=== PATIENT | male | born 1970 | race African-American/Black ===

== ENCOUNTER 2018-02-03 09:51 | Inpatient (IN) | payer OTHER ==
[2018-02-03 10:12] VITALS: BMI 28.5
--- NOTE | 2018-02-03 11:31 | HP ---
COWS - Scale Resting Pulse: 0= [place] 80 or Below Sweatin= Chills/Flushing Restless Observation: 1= Difficult to Sit Still Pupil Size: 1= Pupils >than Normal Bone or Joint Aches: 2= Severe Diffuse Aches Runny Nose/ Eye Tearin= Runny Nose/Eyes GI Upset > 30mins: 2= Nausea/Diarrhea Tremor Observation: 2= Slight Tremor Visible Yawning Observation: 1= 1-2x During Session Anxiety or Irritability: 2=Irritable/Anxious Goose Flesh Skin: 0=Smooth Skin COWS Score: 14 CIWA Score Nausea/Vomitin Muscle Tremors: 2 Anxiety: 2 Agitation: 2 Paroxysmal Sweats: 1-Minimal Palms Moist Orientation: 0-Oriented Tacttile Disturbances: 1-Very Mild Itch/Numbness Auditory Disturbances: 1-Very Mild Visual Disturbances: 0-None Headache: 2-Mild CIWA-Ar Total Score: 13 - Admission Criteria [facility] Guidelines: Admission for Medically Managed Detox: Requires at least one of the followin. CIWA greater than 12 2. Seizures within the past 24 hours 3. Delirium tremens within the past 24 hours 4. Hallucinations within the past 24 hours 5. Acute intervention needed for co occurring medical disorder 6. Acute intervention needed for co occurring psychiatric disorder 7. Severe withdrawal that cannot be handled at a lower level of care (continued vomiting, continued diarrhea, abnormal vital signs) requiring intravenous medication and/or fluids 8. Patient presents the following: CIWA greater than 12 Admission Criteria Met: Admission criteria met Admission ROS [facility] Chief Complaint: i need help to stop using heroin,alcohol and marijuana Allergies/Adverse Reactions: Allergies Allergy/AdvReac Type Severity Reaction Status Date / Time No Known Allergies Allergy Verified 02/03/18 11:09 History of Present Illness: this 47 years old male with heroin and marijuana dependence,withdrawal symptom, seeking detox,last treatment 08/13 [facility] history of hypertension multiple admissions in detox nicotine dependence longest period of sobriety 5 years also alcoholism Exam Limitations: No Limitations - Ebola screening Have you traveled outside of the country in the last 21 days: No Have you had contact with anyone from an Ebola affected area: No Have you been sick,other than usual withdrawal symptoms: No - Review of Systems Constitutional: Chills, Loss of Appetite, Malaise, Night Sweats, Changes in sleep, Weakness EENT: reports: Tearing, Nose Congestion Respiratory: reports: No Symptoms reported Cardiac: reports: No Symptoms Reported GI: reports: Nausea, Indigestion, Abdominal cramping : reports: No Symptoms Reported Musculoskeletal: reports: Back Pain, Joint Pain, Muscle Pain Integumentary: reports: Dryness Neuro: reports: Headache, Tremors Endocrine: reports: No Symptoms Reported Hematology: reports: No Symptoms Reported Psychiatric: reports: No Sypmtoms Reported, Judgement Intact, Mood/Affect Appropiate Patient History - Patient Medical History Hx Anemia: No Hx Asthma: No Hx Chronic Obstructive Pulmonary Disease (COPD): No Hx Cardiac Disorders: No Hx Hypertension: Yes (not on meds.) Hx Hypercholesterolemia: No Hx Pacemaker: No HX Cerebrovascular Accident: No Hx Seizures: No Hx Dementia: No Hx Diabetes: No Hx Gastrointestinal Disorders: No Hx Liver Disease: No Hx Genitourinary Disorders: No Hx Sexually Transmitted Disorders: No Hx Renal Disease (ESRD): No Hx Thyroid Disease: No Hx Human Immunodeficiency Virus (HIV): No (last 08/13 negative) Hx Hepatitis C: No Hx Depression: No Hx Suicide Attempt: No Hx Bipolar Disorder: No Hx Schizophrenia: No Other Medical History: no suicidal,no homicidal - Patient Surgical History Past Surgical History: No - PPD History Previous Implant?: Yes Documented Results: Negative w/o proof Implanted On Prior [facility] Admission?: No PPD to be Administered?: Yes - Smoking Cessation Smoking history: Current every day smoker Have you smoked in the past 12 months: Yes Aproximately how many cigarettes per day: 20 Hx Chewing Tobacco Use: No Initiated information on smoking cessation: Yes 'Breaking Loose' booklet given: 02/03/18 - Substance & Tx. History Hx Alcohol Use: Yes Hx Substance Use: Yes Substance Use Type: Alcohol, Heroin, Marijuana - Substances Abused Heroin Route: Inhalation Frequency: Daily Amount used: 10 BAGS Age of first use: 13 Date of Last Use: 02/03/18 Alcohol Route: Oral Frequency: Daily Amount used: 1/2 [place] Age of first use: 13 Date of Last Use: 02/03/18 Marijuana/Hashish Route: Smoking Frequency: Daily Amount used: 1-2 BLUNTS Age of first use: 13 Date of Last Use: 02/02/18 Family Disease History - Family Disease History Family Disease History: Other: Father (alcohol) Admission Physical Exam [facility] - Vital Signs Vital Signs: Vital Signs - 24 hr 02/03/18 10:09 Temperature 98.3 F Pulse Rate 61 Respiratory 18 Rate Blood Pressure 131/86 - Physical General Appearance: Yes: Moderate Distress, Tremorous, Irritable, Sweating, Anxious HEENTM: Yes: Normocephalic, APRYL, Pharynx Normal Respiratory: Yes: Lungs Clear, Normal Breath Sounds, No Respiratory Distress Neck: Yes: Within Normal Limits, Supple, Trachea in good position Breast: Yes: Within Normal Limits Cardiology: Yes: Within Normal Limits, Regular Rhythm, Regular Rate, S1, S2 Abdominal: Yes: Within Normal Limits, Normal Bowel Sounds, Non Tender, Flat, Soft Genitourinary: Yes: Within Normal Limits Back: Yes: Muscle Spasm Musculoskeletal: Yes: full range of Motion, Back pain, Joint Stiffness, Muscle Pain Extremities: Yes: Within Normal Limits, Tremors Neurological: Yes: tire center manager II-XII NML intact, Fully Oriented, Alert, Motor Strength 5/5 Integumentary: Yes: Dry Lymphatic: Yes: Within Normal Limits - Diagnostic (1) Opioid dependence with withdrawal Current Visit: Yes Status: Acute (2) Alcohol dependence with uncomplicated withdrawal Current Visit: Yes Status: Acute (3) Cannabis dependence Current Visit: Yes Status: Acute (4) Essential hypertension Current Visit: Yes Status: Acute (5) Nicotine dependence Current Visit: Yes Status: Acute Cleared for Admission [facility] - Detox or Rehab [facility] Level of Care: Medically Managed Detox Regimen/Protocol: Methadone/Librium [facility] Breath Alcohol Content Breath Alcohol Content: 0.20 Urine Drug Screen - Results Drug Screen Negative: No Urine Drug Screen Results: THC-Marijuana, OPI-Opiates, FEN-Fentanyl
[2018-02-03] MEDS ORDERED: MAGNESIUM HYDROX 2400MG/30ML ORAL SUSPENSION 30 ML CUP PO PRN (11:43)
[2018-02-03] MEDS ORDERED: P-EPHED 60MG/TRIPROLIDI 2.5MG TABLET PO PRN (11:43)
[2018-02-03] MEDS ORDERED: hydrOXYzine PAMOATE 25 MG CAPSULE (FP) PO PRN (11:43)
[2018-02-03] MEDS ORDERED: MAGNESIUM CITRATE 300 ML BOTTLE PO PRN (11:43)
[2018-02-03] MEDS ORDERED: MENTHOL/PHENOL 1 EACH UD MM PRN (11:43)
[2018-02-03] MEDS ORDERED: LOPERAMIDE HCL 2 MG CAPSULE PO PRN (11:43)
[2018-02-03] MEDS ORDERED: guaiFENesin/D-METHORPHAN HB 10 ML UNIT-DOSE CUPS PO PRN (11:43)
[2018-02-03] MEDS ORDERED: chlordiazePOXIDE HCL 25 MG CAPSULE PO PRN (11:43)
[2018-02-03] MEDS ORDERED: MAG HYDROX/AL HYDROX/SIMETH 30 ML UNIT-DOSE CUP PO PRN (11:43)
[2018-02-03] MEDS ORDERED: ACETAMINOPHEN 325 MG TABLET (FP) PO PRN (11:43)
[2018-02-03] MEDS ORDERED: METHADONE HCL 10 MG TABLET (FOR DETOX USE ONLY) PO ONE ×2 (12:15→23:00)
[2018-02-03] MEDS: chlordiazePOXIDE HCL 25 MG CAPSULE PO SCH ×2 (17:10→22:10)
[2018-02-03 18:31] LABS: URINE APPEARANCE CLEAR; URINE BILIRUBIN NEGATIVE (<2.0 mg/dL); URINE COLOR YELLOW; URINE GLUCOSE (UA) NEGATIVE (NEGATIVE); URINE KETONE NEGATIVE (NEGATIVE); URINE LEUK ESTERASE 1+ (NEGATIVE); URINE NITRITE NEGATIVE (NEGATIVE); URINE PROTEIN NEGATIVE (NEGATIVE); URINE UROBILINOGEN 4.0 E.U/dl mg/dL (0.2-1.0)
[2018-02-03 18:36] LABS: EPI CELLS RARE /HPF (FEW); URINE HYALINE CAST 1 /lpf; URINE MUCUS RARE
[2018-02-03] MEDS: IBUPROFEN 400 MG TABLET (FP) PO PRN (19:39)
[2018-02-03] MEDS: THIAMINE HCL 100 MG TABLET (FP) PO SCH (22:09)
[2018-02-03] MEDS: MELATONIN 5 MG TABLETS PO PRN (22:11)
[2018-02-04] MEDS: chlordiazePOXIDE HCL 25 MG CAPSULE PO SCH ×4 (05:35→22:10)
--- NOTE | 2018-02-04 07:36 | EKG ---
Test Reason : Blood Pressure : / mmHG Vent. Rate : 055 BPM Atrial Rate : 055 BPM P-R Int : 176 ms QRS Dur : 096 ms QT Int : 424 ms P-R-T Axes : 050 009 019 degrees QTc Int : 405 ms SINUS BRADYCARDIA NONSPECIFIC T WAVE ABNORMALITY ABNORMAL ECG NO PREVIOUS ECGS AVAILABLE Confirmed by RICH LUNA MD ([id number]) on 02/04/2018 7:36:32 AM Referred By: Confirmed By:RICH LUNA MD
[2018-02-04] MEDS: cloNIDine HCL 0.1 MG TABLET PO PRN (07:50)
[2018-02-04] MEDS ORDERED: METHADONE HCL 10 MG TABLET (FOR DETOX USE ONLY) PO SCH (10:00)
[2018-02-04 10:12] LABS: HEMOGLOBIN 14.4 GM/dL (11.7-16.9); MCH 29.3 pg (25.7-33.7); MCHC 32.6 g/dl (32.0-35.9); MEAN CELL VOLUME 89.6 fl (80-96); MEAN PLT VOLUME 10.1 fl (7.5-11.1); PLATELET COUNT 158 K/MM3 (134-434); RBC 4.91 M/mm3 (4.00-5.60); RDW 15.4 % (11.9-15.9); WHITE BLOOD COUNT 4.7 K/mm3 (4.0-10.0)
[2018-02-04] MEDS: PRENATAL VITAMINS W/ FOLIC ACID TABLET (FP) PO SCH (10:17)
[2018-02-04 11:07] LABS: ALBUMIN 3.7 g/dl (3.4-5.0); ALK PHOS 121 U/L (45-117); ANION GAP 9 MMOL/L (8-16); BILIRUBIN,TOTAL 0.4 mg/dL (0.2-1); BLOOD UREA NITROGEN 19 mg/dL (7-18); CALCIUM 8.8 mg/dL (8.5-10.1); CHLORIDE 106 mmol/L (98-107); CO2 26 mmol/L (21-32); CREATININE 1.3 mg/dL (0.55-1.3); GLUCOSE,RANDOM 137 mg/dL (74-106); POTASSIUM 3.8 mmol/L (3.5-5.1); SGOT/AST 13 U/L (15-37); SGPT/ALT 16 U/L (13-61); SODIUM 142 mmol/L (136-145); TOT PROT 7.1 g/dl (6.4-8.2)
--- NOTE | 2018-02-04 12:54 | PN ---
S CIWA - CIWA Score Nausea/Vomitin Muscle Tremors: 4-Moderate,w/Arms Extend Anxiety: 3 Agitation: 3 Paroxysmal Sweats: 3 Orientation: 0-Oriented Tacttile Disturbances: 0-None Auditory Disturbances: 0-None Visual Disturbances: 0-None Headache: 1-Very Mild CIWA-Ar Total Score: 16 [facility] COWS - Scale Resting Pulse: 0= [place] 80 or Below Sweatin= Chills/Flushing Restless Observation: 3= Extraneous Movement Pupil Size: 0= Normal to Room Light Bone or Joint Aches: 2= Severe Diffuse Aches Runny Nose/ Eye Tearin= Runny Nose/Eyes GI Upset > 30mins: 3= Vomiting/Diarrhea Tremor Observation of Outstretched Hands: 2= Slight Tremor Visible Yawning Observation: 0= None Anxiety or Irritability: 2=Irritable/Anxious Goose Flesh Skin: 0=Smooth Skin COWS Score: 15 [facility] Progress Note (SOAP) Subjective: Runny nose, sweating, anxious, interrupted sleep Objective: 02/04/18 12:58 Last Vital Signs Temp Pulse Resp BP Pulse Ox 97.0 F L 57 L 19 118/69 02/04/18 09:00 02/04/18 09:00 02/04/18 09:00 02/04/18 09:00 Laboratory Tests 02/03/18 02/04/18 02/04/18 15:48 06:00 06:00 WBC 4.7 RBC 4.91 Hgb 14.4 Hct 44.0 MCV 89.6 MCH 29.3 MCHC 32.6 RDW 15.4 Plt Count 158 MPV 10.1 Sodium 142 Potassium 3.8 Chloride 106 Carbon Dioxide 26 Anion Gap 9 BUN 19 H Creatinine 1.3 Creat Clearance w eGFR 58.67 Random Glucose 137 H Calcium 8.8 Total Bilirubin 0.4 AST 13 L ALT 16 Alkaline Phosphatase 121 H Total Protein 7.1 Albumin 3.7 Urine Color Yellow Urine Appearance Clear Urine pH 7.0 Ur Specific [place] 1.021 Urine Protein Negative Urine Glucose (UA) Negative Urine Ketones Negative Urine Blood 2+ H Urine Nitrite Negative Urine Bilirubin Negative Urine Urobilinogen 4.0 e.u/dl Ur Leukocyte Esterase 1+ H Urine WBC (Auto) 32 Urine RBC (Auto) 20 Ur Epithelial Cells Rare Hyaline Casts 1 Urine Mucus Rare RPR Titer 02/04/18 06:00 WBC RBC Hgb Hct MCV MCH MCHC RDW Plt Count MPV Sodium Potassium Chloride Carbon Dioxide Anion Gap BUN Creatinine Creat Clearance w eGFR Random Glucose Calcium Total Bilirubin AST ALT Alkaline Phosphatase Total Protein Albumin Urine Color Urine Appearance Urine pH Ur Specific [place] Urine Protein Urine Glucose (UA) Urine Ketones Urine Blood Urine Nitrite Urine Bilirubin Urine Urobilinogen Ur Leukocyte Esterase Urine WBC (Auto) Urine RBC (Auto) Ur Epithelial Cells Hyaline Casts Urine Mucus RPR Titer Nonreactive Labs reviewed: prerenal azotemia, glucose 137, abnormal UA Assessment: 02/04/18 13:01 Withdrawal sxs Noted with prerenal azotemia, hyperglycemia and abnormal UA Plan: Continue detox Prerenal azotemia: encouraged PO water intake Hyperglycemia: repeat fasting glucose Abnormal UA: encouraged PO water intake, repeat UA
[2018-02-04] MEDS: IBUPROFEN 400 MG TABLET (FP) PO PRN (17:22)
[2018-02-04] MEDS: THIAMINE HCL 100 MG TABLET (FP) PO SCH (22:10)
[2018-02-04] MEDS: MELATONIN 5 MG TABLETS PO PRN (22:10)
[2018-02-05] MEDS: chlordiazePOXIDE HCL 25 MG CAPSULE PO SCH ×2 (05:08→10:04)
--- NOTE | 2018-02-05 09:51 | PN ---
[facility] CIWA - CIWA Score Nausea/Vomitin-No Nausea/No Vomiting Muscle Tremors: 2 Anxiety: 3 Agitation: 2 Paroxysmal Sweats: 2 Orientation: 0-Oriented Tacttile Disturbances: 1-Very Mild Itch/Numbness Auditory Disturbances: 0-None Visual Disturbances: 1-Very Mild Sensitivity Headache: 1-Very Mild CIWA-Ar Total Score: 12 [facility] COWS - Scale Resting Pulse: 0= [place] 80 or Below Sweatin= Chills/Flushing Restless Observation: 1= Difficult to Sit Still Pupil Size: 0= Normal to Room Light Bone or Joint Aches: 1= Mild Discomfort Runny Nose/ Eye Tearin= Runny Nose/Eyes GI Upset > 30mins: 0= None Tremor Observation of Outstretched Hands: 1= Tremor [place], Not Seen Yawning Observation: 4= Several Times/Minute Anxiety or Irritability: 2=Irritable/Anxious Goose Flesh Skin: 0=Smooth Skin COWS Score: 12 [facility] Progress Note (SOAP) Subjective: nasal congestion, interrupted sleep, chills Objective: 02/05/18 09:50 Vital Signs Temperature 97.6 F 02/05/18 06:07 Pulse Rate 45 L 02/05/18 06:07 Respiratory Rate 18 02/05/18 06:07 Blood Pressure 134/82 02/05/18 06:07 O2 Sat by Pulse Oximetry (%) Vital Signs Temperature 98.1 F 02/05/18 10:31 Pulse Rate 56 L 02/05/18 10:31 Respiratory Rate 16 02/05/18 10:31 Blood Pressure 144/100 02/05/18 10:31 O2 Sat by Pulse Oximetry (%) Laboratory Last Values WBC 4.7 K/mm3 (4.0-10.0) 02/04/18 06:00 RBC 4.91 M/mm3 (4.00-5.60) 02/04/18 06:00 Hgb 14.4 GM/dL (11.7-16.9) 02/04/18 06:00 Hct 44.0 % (35.4-49) 02/04/18 06:00 MCV 89.6 fl (80-96) 02/04/18 06:00 MCH 29.3 pg (25.7-33.7) 02/04/18 06:00 MCHC 32.6 g/dl (32.0-35.9) 02/04/18 06:00 RDW 15.4 % (11.9-15.9) 02/04/18 06:00 Plt Count 158 K/MM3 (134-434) 02/04/18 06:00 MPV 10.1 fl (7.5-11.1) 02/04/18 06:00 Sodium 142 mmol/L (136-145) 02/04/18 06:00 Potassium 3.8 mmol/L (3.5-5.1) 02/04/18 06:00 Chloride 106 mmol/L (98-107) 02/04/18 06:00 Carbon Dioxide 26 mmol/L (21-32) 02/04/18 06:00 Anion Gap 9 MMOL/L (8-16) 02/04/18 06:00 BUN 19 mg/dL (7-18) H 02/04/18 06:00 Creatinine 1.3 mg/dL (0.55-1.3) 02/04/18 06:00 Creat Clearance w eGFR 58.67 (>60) 02/04/18 06:00 Random Glucose 137 mg/dL (74-106) H 02/04/18 06:00 Calcium 8.8 mg/dL (8.5-10.1) 02/04/18 06:00 Total Bilirubin 0.4 mg/dL (0.2-1) 02/04/18 06:00 AST 13 U/L (15-37) L 02/04/18 06:00 ALT 16 U/L (13-61) 02/04/18 06:00 Alkaline Phosphatase 121 U/L (45-117) H 02/04/18 06:00 Total Protein 7.1 g/dl (6.4-8.2) 02/04/18 06:00 Albumin 3.7 g/dl (3.4-5.0) 02/04/18 06:00 Urine Color Yellow 02/03/18 15:48 Urine Appearance Clear 02/03/18 15:48 Urine pH 7.0 (5.0-8.0) 02/03/18 15:48 Ur Specific [place] 1.021 (1.010-1.035) 02/03/18 15:48 Urine Protein Negative (NEGATIVE) 02/03/18 15:48 Urine Glucose (UA) Negative (NEGATIVE) 02/03/18 15:48 Urine Ketones Negative (NEGATIVE) 02/03/18 15:48 Urine Blood 2+ (NEGATIVE) H 02/03/18 15:48 Urine Nitrite Negative (NEGATIVE) 02/03/18 15:48 Urine Bilirubin Negative (<2.0 mg/dL) 02/03/18 15:48 Urine Urobilinogen 4.0 e.u/dl mg/dL (0.2-1.0) 02/03/18 15:48 Ur Leukocyte Esterase 1+ (NEGATIVE) H 02/03/18 15:48 Urine WBC (Auto) 32 /hpf (3-5) 02/03/18 15:48 Urine RBC (Auto) 20 /hpf (0-3) 02/03/18 15:48 Ur Epithelial Cells Rare /HPF (FEW) 02/03/18 15:48 Hyaline Casts 1 /lpf 02/03/18 15:48 Urine Mucus Rare 02/03/18 15:48 RPR Titer Nonreactive (NONREACTIVE) 02/04/18 06:00 02/05/18 12:23 Aox3 no distress no adventitious breath sounds full ROM ambulatory Assessment: 02/05/18 12:24 withdrawal sx Plan: increase PO fluids continue to monitor continue detox
[2018-02-05] MEDS: METHADONE HCL 5 MG TABLET (FOR DETOX USE ONLY) PO SCH (10:04)
[2018-02-05] MEDS: PRENATAL VITAMINS W/ FOLIC ACID TABLET (FP) PO SCH (10:04)
[2018-02-05] MEDS: chlordiazePOXIDE 5 MG CAPSULE PO SCH ×2 (17:45→22:07)
[2018-02-05] MEDS: THIAMINE HCL 100 MG TABLET (FP) PO SCH (22:07)
[2018-02-05] MEDS: MELATONIN 5 MG TABLETS PO PRN (22:07)
[2018-02-06] MEDS: chlordiazePOXIDE 5 MG CAPSULE PO SCH ×2 (05:15→10:09)
[2018-02-06] MEDS: METHADONE HCL 5 MG TABLET (FOR DETOX USE ONLY) PO SCH (10:08)
[2018-02-06] MEDS: PRENATAL VITAMINS W/ FOLIC ACID TABLET (FP) PO SCH (10:09)
--- NOTE | 2018-02-06 12:12 | PN ---
[facility] Progress Note (SOAP) Subjective: Denies any withdrawal symptoms; patient is anxious Objective: 02/06/18 12:07 Last Vital Signs Temp Pulse Resp BP Pulse Ox 97.2 F L 51 L 16 134/79 02/06/18 09:42 02/06/18 09:42 02/06/18 09:42 02/06/18 09:42 Laboratory Tests 02/03/18 02/04/18 02/04/18 15:48 06:00 06:00 WBC 4.7 RBC 4.91 Hgb 14.4 Hct 44.0 MCV 89.6 MCH 29.3 MCHC 32.6 RDW 15.4 Plt Count 158 MPV 10.1 Sodium 142 Potassium 3.8 Chloride 106 Carbon Dioxide 26 Anion Gap 9 BUN 19 H Creatinine 1.3 Creat Clearance w eGFR 58.67 Random Glucose 137 H Calcium 8.8 Total Bilirubin 0.4 AST 13 L ALT 16 Alkaline Phosphatase 121 H Total Protein 7.1 Albumin 3.7 Urine Color Yellow Urine Appearance Clear Urine pH 7.0 Ur Specific [place] 1.021 Urine Protein Negative Urine Glucose (UA) Negative Urine Ketones Negative Urine Blood 2+ H Urine Nitrite Negative Urine Bilirubin Negative Urine Urobilinogen 4.0 e.u/dl Ur Leukocyte Esterase 1+ H Urine WBC (Auto) 32 Urine RBC (Auto) 20 Ur Epithelial Cells Rare Hyaline Casts 1 Urine Mucus Rare RPR Titer 02/04/18 06:00 WBC RBC Hgb Hct MCV MCH MCHC RDW Plt Count MPV Sodium Potassium Chloride Carbon Dioxide Anion Gap BUN Creatinine Creat Clearance w eGFR Random Glucose Calcium Total Bilirubin AST ALT Alkaline Phosphatase Total Protein Albumin Urine Color Urine Appearance Urine pH Ur Specific [place] Urine Protein Urine Glucose (UA) Urine Ketones Urine Blood Urine Nitrite Urine Bilirubin Urine Urobilinogen Ur Leukocyte Esterase Urine WBC (Auto) Urine RBC (Auto) Ur Epithelial Cells Hyaline Casts Urine Mucus RPR Titer Nonreactive Labs reviewed: prerenal azotemia, hyperglycemia and abnormal UA noted Assessment: 02/06/18 12:08 Withdrawal sxs Noted with prerenal azotemia, hyperglycemia and abnormal UA Plan: Continue detox Prerenal azotemia: encouraged to drink more water for hydration Hyperglycemia: repeat fasting glucose Abnormal UA: encouraged PO water intake, repeat UA
[2018-02-06] MEDS: chlordiazePOXIDE HCL 10 MG CAPSULE PO SCH ×2 (17:00→22:10)
[2018-02-06] MEDS: IBUPROFEN 400 MG TABLET (FP) PO PRN (17:01)
[2018-02-06] MEDS: THIAMINE HCL 100 MG TABLET (FP) PO SCH (22:10)
[2018-02-06] MEDS: cloNIDine HCL 0.1 MG TABLET PO PRN (22:11)
[2018-02-07] MEDS: chlordiazePOXIDE HCL 10 MG CAPSULE PO SCH ×2 (06:40→10:07)
[2018-02-07] MEDS ORDERED: METHADONE HCL 10 MG TABLET (FOR DETOX USE ONLY) PO SCH (10:00)
[2018-02-07] MEDS: PRENATAL VITAMINS W/ FOLIC ACID TABLET (FP) PO SCH (10:06)
[2018-02-07 14:19] LABS: URINE APPEARANCE CLEAR; URINE BILIRUBIN NEGATIVE (<2.0 mg/dL); URINE COLOR LTYELLOW; URINE GLUCOSE (UA) NEGATIVE (NEGATIVE); URINE KETONE NEGATIVE (NEGATIVE); URINE LEUK ESTERASE NEGATIVE (NEGATIVE); URINE NITRITE NEGATIVE (NEGATIVE); URINE PROTEIN NEGATIVE (NEGATIVE); URINE UROBILINOGEN NEGATIVE mg/dL (0.2-1.0)
--- NOTE | 2018-02-07 19:26 | PN ---
[facility] Progress Note (SOAP) Subjective: NO COMPLAINTS OFFERED Objective: 02/07/18 19:24 NO DISTRESS NOTED GAIT STEADY Vital Signs Temperature 97.8 F 02/07/18 17:41 Pulse Rate 56 L 02/07/18 17:41 Respiratory Rate 18 02/07/18 17:41 Blood Pressure 117/71 02/07/18 17:41 O2 Sat by Pulse Oximetry (%) Assessment: 02/07/18 19:25 SUCCESSFUL DETOX Plan: CONTINUE DETOX FOR D/C IN A.M
[2018-02-07] MEDS: THIAMINE HCL 100 MG TABLET (FP) PO SCH (22:09)
[2018-02-07] MEDS: MELATONIN 5 MG TABLETS PO PRN (22:09)
[2018-02-08] MEDS ORDERED: METHADONE HCL 5 MG TABLET (FOR DETOX USE ONLY) PO SCH (06:00)
[2018-02-08 06:28] VITALS: BP 138/78; PULSE 50; TEMP 97.9
--- NOTE | 2018-02-08 10:19 | DS ---
[facility] Detox Discharge Summary Admission Date: 02/03/18 Discharge Date: 02/08/18 - History Present History: Alcohol Dependence, Opioid Dependence - Physical Exam Results Vital Signs: Vital Signs Temperature 97.9 F 02/08/18 06:28 Pulse Rate 50 L 02/08/18 06:28 Respiratory Rate 18 02/08/18 06:28 Blood Pressure 138/78 02/08/18 06:28 O2 Sat by Pulse Oximetry (%) Pertinent Admission Physical Exam Findings: PATIENT TOLERATED DETOX REGIMEN WITHOUT ADVERSE EVENT. PATIENT D/C CLINICALLY STABLE, DENIES SI/HI. PATIENT ENCOURAGED TO ATTEND GROUP MEETINGS TO PREVENT RELAPSE, FOLLOW UP WITH PCP WITHIN ONE WEEK OF D/C AND TO SEEK MEDICAL ATTENTION IF WITHDRAWAL SYMPTOMS OCCUR. D/C INSTRUCTIONS GIVEN TO PATIENT BY STAFF. - Treatment Hospital Course: Detox Protocol Followed, Detoxed Safely, Responded well, Discharged Condition Good - Medication Discharge Medications: Ambulatory Orders NK [No Known Home Medication] 02/03/18 - AMA Did Patient Leave Against Medical Advice: No
== END 2018-02-08 07:03 | disposition home or self-care (01) | DRG 773 ==
LOC: YASAS 09:51 → Y3N 11:36
PROC: HZ2ZZZZ Detoxification Services for Substance Abuse Treatment (ICD-10-PCS; principal; 2018-02-03)
DX: F11.23 Opioid dependence with withdrawal (principal); F10.230 Alcohol dependence with withdrawal, uncomplicated; F12.20 Cannabis dependence, uncomplicated; F17.210 Nicotine dependence, cigarettes, uncomplicated; I10 Essential (primary) hypertension; R82.90 Unspecified abnormal findings in urine; R79.89 Other specified abnormal findings of blood chemistry; R73.9 Hyperglycemia, unspecified; Z59.0 Homelessness
CPT/HCPCS: 36415; 80053; 81003; 81015; 85027; 86593; 93005; 93010; J0735